=== PATIENT | male | born 2000 | race Two or more races ===

== ENCOUNTER 2025-02-07 16:06 | Inpatient (IN) | payer OTHER ==
[~2025-02-07] VITALS: Ht 185.4 cm; Wt 144.0 kg
[2025-02-07 18:01] LABS: COVID AG,FIA SOURCE NASAL SWAB
[2025-02-07 18:20] LABS: SARS-COV2 (COVID) ANTIGEN,FIA Negative (Negative)
[2025-02-07 18:21] LABS: INFLUENZA TYPE A NEGATIVE FOR TYPE A (NEGATIVE); INFLUENZA TYPE B NEGATIVE FOR TYPE B (NEGATIVE)
[2025-02-07] MEDS ORDERED: ACETAMINOPHEN 325 MG TABLET PO PRN (18:30)
[2025-02-07] MEDS ORDERED: MAGNESIUM HYDROXIDE SUSPENSION 30 ML UDCUP PO PRN (18:30)
[2025-02-07] MEDS ORDERED: ZOLPIDEM TARTRATE 5 MG TABLET PO PRN (18:30)
[2025-02-07 18:36] LABS: PLATELET COUNT (AUTO) 296 K/uL (150-450); RED BLOOD CELL COUNT(AUTO) 5.17 MIL/uL (4.50-5.90); RED CELL DISTRIBUTION WIDTH 14.2 % (11.5-14.5); WHITE BLOOD COUNT (AUTO) 11.5 K/uL (4.5-11.0)
[2025-02-07 18:45] LABS: CALCIUM, TOTAL 9.0 mg/dL (8.8-10.5); CREATININE 0.60 mg/dL (0.60-1.30); GLOMERULAR FILTR. RATE CALC > 60 mL/min (>60); GLUCOSE,RANDOM 90 mg/dL (70-110); SODIUM SERUM 139 mmol/L (136-145); UREA NITROGEN, BLOOD 12 mg/dL (7-18)
[2025-02-07 18:50] LABS: ASPARTATE AMINOTRANSFERASE 54 U/L (15-37); TOTAL PROTEIN, SERUM 7.9 g/dL (6.4-8.2)
[2025-02-07 20:53] VITALS: BP 145/79; PULSE 87; RESP 19; TEMP 98.8; O2SAT 97
[2025-02-07 23:30] VITALS: BP 157/101; PULSE 73; RESP 19; TEMP 98.2; O2SAT 98
[2025-02-08 04:00] VITALS: BP 101/66; PULSE 60; RESP 18; TEMP 97.9; O2SAT 97
[2025-02-08 04:07] VITALS: BP 128/72; PULSE 75; RESP 18; TEMP 98.1; O2SAT 97
[2025-02-08 08:27] VITALS: BP 119/65; PULSE 75; RESP 18; TEMP 98.4; O2SAT 97
[2025-02-08] MEDS: FAMOTIDINE 20 MG TABLET PO SCH (08:29)
[2025-02-08 09:14] LABS: PLATELET COUNT (AUTO) 283 K/uL (150-450); RED BLOOD CELL COUNT(AUTO) 5.06 MIL/uL (4.50-5.90); RED CELL DISTRIBUTION WIDTH 14.1 % (11.5-14.5); WHITE BLOOD COUNT (AUTO) 9.0 K/uL (4.5-11.0)
[2025-02-08 09:19] LABS: CALCIUM, TOTAL 8.8 mg/dL (8.8-10.5); CREATININE 0.57 mg/dL (0.60-1.30); GLOMERULAR FILTR. RATE CALC > 60 mL/min (>60); GLUCOSE,RANDOM 88 mg/dL (70-110); SODIUM SERUM 139 mmol/L (136-145); UREA NITROGEN, BLOOD 12 mg/dL (7-18)
[2025-02-08 11:54] VITALS: BP 145/83; PULSE 82; RESP 18; TEMP 98.2; O2SAT 100
[2025-02-08 13:12] LABS: MTB PCR w/Rif. Resistance-SPUT NOT DETECTED (Not Detectd)
[2025-02-08 15:52] VITALS: BP 135/84; PULSE 80; RESP 18; TEMP 98.2; O2SAT 100
[2025-02-08 20:15] VITALS: BP 137/91; PULSE 78; RESP 19; TEMP 98.2; O2SAT 95
[2025-02-09 00:21] VITALS: BP 127/83; PULSE 84; RESP 18; TEMP 97.2; O2SAT 100
[2025-02-09] MEDS ORDERED: SODIUM CHLORIDE 3% 15 ML NEB SOLUTION NEB ONE (02:12)
[2025-02-09 05:14] VITALS: BP 130/83; PULSE 85; RESP 18; TEMP 97.7; O2SAT 99
[2025-02-09 06:24] LABS: PLATELET COUNT (AUTO) 280 K/uL (150-450); RED BLOOD CELL COUNT(AUTO) 5.13 MIL/uL (4.50-5.90); RED CELL DISTRIBUTION WIDTH 14.0 % (11.5-14.5); WHITE BLOOD COUNT (AUTO) 9.4 K/uL (4.5-11.0)
[2025-02-09 06:30] LABS: CALCIUM, TOTAL 8.5 mg/dL (8.8-10.5); CREATININE 0.64 mg/dL (0.60-1.30); GLOMERULAR FILTR. RATE CALC > 60 mL/min (>60); GLUCOSE,RANDOM 95 mg/dL (70-110); SODIUM SERUM 139 mmol/L (136-145); UREA NITROGEN, BLOOD 11 mg/dL (7-18)
[2025-02-09 08:18] VITALS: BP 131/83; PULSE 85; RESP 18; TEMP 98.2; O2SAT 97
[2025-02-09 11:55] VITALS: BP 137/87; PULSE 79; RESP 17; TEMP 98.6; O2SAT 99
[2025-02-09 13:12] LABS: MTB PCR w/Rif. Resistance-SPUT NOT DETECTED (Not Detectd)
[2025-02-09 16:21] VITALS: BP 125/88; PULSE 88; RESP 19; TEMP 98.4; O2SAT 98
[2025-02-09 20:00] VITALS: BP 146/80; PULSE 77; RESP 18; TEMP 98.2; O2SAT 98
[2025-02-10 00:16] VITALS: BP 122/81; PULSE 78; RESP 18; TEMP 98.4; O2SAT 97
[2025-02-10 05:10] VITALS: BP 131/79; PULSE 75; RESP 16; TEMP 98.1; O2SAT 100
[2025-02-10 06:50] LABS: PLATELET COUNT (AUTO) 285 K/uL (150-450); RED BLOOD CELL COUNT(AUTO) 5.36 MIL/uL (4.50-5.90); RED CELL DISTRIBUTION WIDTH 13.9 % (11.5-14.5); WHITE BLOOD COUNT (AUTO) 9.9 K/uL (4.5-11.0)
[2025-02-10 07:16] LABS: CALCIUM, TOTAL 8.8 mg/dL (8.8-10.5); CREATININE 0.60 mg/dL (0.60-1.30); GLOMERULAR FILTR. RATE CALC > 60 mL/min (>60); GLUCOSE,RANDOM 97 mg/dL (70-110); SODIUM SERUM 138 mmol/L (136-145); UREA NITROGEN, BLOOD 11 mg/dL (7-18)
[2025-02-10 08:27] VITALS: BP 127/85; PULSE 82; RESP 17; TEMP 98.4; O2SAT 100
[2025-02-10 11:32] VITALS: BP 139/85; PULSE 80; RESP 17; TEMP 98.4; O2SAT 98
[2025-02-10 16:00] VITALS: BP 155/110; PULSE 80; RESP 18; TEMP 97.9; O2SAT 98
[2025-02-10 20:16] VITALS: BP 131/76; PULSE 77; RESP 18; TEMP 98.1; O2SAT 98
[2025-02-11 04:00] VITALS: BP 131/88; PULSE 86; RESP 16; TEMP 98.1; O2SAT 100
[2025-02-11 08:28] VITALS: BP 138/75; PULSE 74; RESP 18; TEMP 97.9; O2SAT 98
[2025-02-11 20:01] VITALS: BP 143/85; PULSE 71; RESP 18; TEMP 97.9; O2SAT 97
[2025-02-12 04:46] VITALS: BP 136/84; PULSE 73; RESP 18; TEMP 97.9; O2SAT 100
[2025-02-12 07:07] LABS: QUANTIFERON+, Nil Value 0.06 IU/mL; QUANTIFERON+,Mitogen Value >10.00 IU/mL; QUANTIFERON+,TB1 Antigen Value 0.05 IU/mL; QUANTIFERON+,TB2 Antigen Value 0.05 IU/mL; QUANTIFERON, TB GOLD PLUS Negative (Negative)
[2025-02-12 08:21] VITALS: BP 151/88; PULSE 57; RESP 18; TEMP 98.1; O2SAT 100
[2025-02-12] MEDS ORDERED: ACET-2247 PO (13:35)
[2025-02-12] MEDS ORDERED: MAGN-169 PO (13:36)
[2025-02-12 20:00] VITALS: BP 148/99; PULSE 82; RESP 18; TEMP 97.5; O2SAT 98
[2025-02-13 04:00] VITALS: BP 134/91; PULSE 69; RESP 16; TEMP 97.9; O2SAT 99
[2025-02-13 09:06] VITALS: BP 141/93; PULSE 74; RESP 18; TEMP 98.2; O2SAT 97
== END 2025-02-13 15:16 | DRG 204 ==
LOC: EMS 16:06 → EDH 18:29 → 5N 20:51 → 6S 02-10 18:02 → 6N 02-12 14:50
PROVIDERS: ADMIT Internal Medicine; ATTEND Internal Medicine
DX: R05.3 Chronic cough (principal); Z68.41 Body mass index [BMI] 40.0-44.9, adult; E66.01 Morbid (severe) obesity due to excess calories; Z78.9 Other specified health status; Z20.822 Contact with and (suspected) exposure to COVID-19
CPT/HCPCS: 71046; 80048; 80053; 83880; 85025; 86480; 87015; 87040; 87206; 87389; 87556; 87804; 93005; 94640; 99285; 36415-L1; 36415-TC

== ENCOUNTER 2025-02-13 16:17 | Emergency (ER) | payer OTHER ==
[~2025-02-13] VITALS: Ht 185.4 cm; Wt 145.5 kg
[~2025-02-13 16:17] MED LIST: ACET-2247 PO; MAGN-169 PO
[2025-02-13 16:46] VITALS: TEMP 98.6
[2025-02-13 17:37] LABS: PLATELET COUNT (AUTO) 310 K/uL (150-450); RED BLOOD CELL COUNT(AUTO) 5.47 MIL/uL (4.50-5.90); RED CELL DISTRIBUTION WIDTH 14.1 % (11.5-14.5); WHITE BLOOD COUNT (AUTO) 12.9 K/uL (4.5-11.0)
[2025-02-13 17:43] LABS: CALCIUM, TOTAL 9.3 mg/dL (8.8-10.5); CREATININE 0.81 mg/dL (0.60-1.30); GLOMERULAR FILTR. RATE CALC > 60 mL/min (>60); GLUCOSE,RANDOM 97 mg/dL (70-110); SODIUM SERUM 140 mmol/L (136-145); UREA NITROGEN, BLOOD 13 mg/dL (7-18)
[2025-02-13 17:53] LABS: TROPONIN I-HIGH SENSITIVITY 7 ng/L (<76)
[2025-02-13 17:55] VITALS: BP 140/80; PULSE 85; RESP 17; O2SAT 97
== END 2025-02-13 21:48 ==
LOC: EMS 16:17
DX: I10 Essential (primary) hypertension (principal); Z79.899 Other long term (current) drug therapy
CPT/HCPCS: 71045; 80048; 84484; 85025; 93005; 93306; 99285; 36415-L1; 36415-TC